=== PATIENT | male | born 1965 | race Caucasian/White ===

== ENCOUNTER 2017-06-18 14:43 | Emergency (ER) | payer BC ==
--- NOTE | 2017-06-18 15:18 | UC ---
Ear Complaint HPI - HPI Summary HPI Summary: 51 y/o male presents to the urgent care c/o persistent productive cough for the past week. She also states myalgias, chills, subjective fever,m left ear pain, Nasal congestion. Cough is producing a green phlegm. Pt has been taking Sudafed and Tylenol to alleviate symptoms. However cough is getting worse, now feeling SOB. Pt denies chest pain, abdominal pain, N/V/D. - History of Current Complaint Stated Complaint: CONGESTION EARS Time Seen by Provider: 06/18/17 15:17 Hx Obtained From: Patient Onset/Duration: Gradual Onset, Lasting Weeks - 1 week, Still Present Severity Initially: Mild Severity Currently: Moderate Pain Intensity: 4 - ear pain and VARGAS Pain Scale Used: 0-10 Numeric Alleviating Factors: OTC Meds Associated Signs/Symptoms: Positive: URI Symptoms - Allergies/Home Medications Allergies/Adverse Reactions: Allergies Allergy/AdvReac Type Severity Reaction Status Date / Time No Known Allergies Allergy Verified 06/18/17 15:23 PMH/Surg Hx/FS Hx/Imm Hx Previously Healthy: Yes - Pt denies PMHX - Family History Known Family History: Positive: Hypertension Family History: Dyslipidemia - Social History Occupation: Employed Full-time Lives: With Family Smoking Status (MU): Never Smoked Tobacco Review of Systems Constitutional: Fever - subjective at home, Chills - at night time Skin: Other - lips with sore due to fever Eyes: Negative ENT: Ear Ache - LF ear pain, Nasal Discharge - yellowish discharge, Sinus Congestion Respiratory: Shortness Of Breath, Cough - productive with green phlegm Cardiovascular: Negative Gastrointestinal: Negative Genitourinary: Negative Motor: Negative Neurovascular: Negative Musculoskeletal: Negative Neurological: Headache - mild Psychological: Negative Is Patient Immunocompromised?: No All Other Systems Reviewed And Are Negative: Yes Physical Exam Triage Information Reviewed: Yes Appearance: Well-Appearing, No Pain Distress, Well-Nourished Vital Signs Reviewed: Yes Eye Exam: Normal Eyes: Positive: Conjunctiva Clear - PERRLA, EOMI ENT: Positive: Normal ENT inspection, Hearing grossly normal, Pharynx normal, Nasal congestion - edematous, eryhtematous nasal mucosa, TMs normal - B/L exteranl ear canal clear, B/L TM's peraly in color with light reflex. Negative : Tonsillar swelling, Tonsillar exudate Neck exam: Normal Neck: Positive: Supple, Nontender, No Lymphadenopathy Respiratory: Positive: Chest non-tender, No respiratory distress, No accessory muscle use, Rhonchi - B/L posterior upper lung mendez with rhonchi Cardiovascular Exam: Normal Cardiovascular: Positive: RRR, No Murmur, Pulses Normal, Brisk Capillary Refill Abdominal Exam: Normal Abdomen Description: Positive: Nontender, No Organomegaly, Soft. Negative: CVA Tenderness (R), CVA Tenderness (L) Bowel Sounds: Positive: Present Musculoskeletal Exam: Normal Musculoskeletal: Positive: Strength Intact, ROM Intact, No Edema Neurological Exam: Normal Psychological Exam: Normal Skin Exam: Normal Ear Complaint Course/Dx - Course Course Of Treatment: 51 y/o male presents to the urgent care c/o persistent productive cough for the past week. She also states myalgias, chills, subjective fever,m left ear pain, Nasal congestion. Cough is producing a green phlegm. Pt has been taking Sudafed and Tylenol to alleviate symptoms. However cough is getting worse, now feeling SOB. Pt denies chest pain, abdominal pain, N/V/D. Hx obtained. Pt with acute bronchitis on examination. Chest X-ray ordered to r/o pneumonia. Impression: No acute cardiopulmonary disease observed. Pt with a lot of bronchospasm. Pt given albuterol neb treatment to alleviate symptoms. Pt tolerated well treatment. Pt Rx Z-marianne and Tessalon tabs PO, Albuterol inhaler to alleviate cough. Advised to increase fluid intake and rest. If symptoms do not improve or worsen and he develops SOB with fever and severe wheezing please go immediately to the ER further evaluation and treatment. Pt BP elevated advised to decrease salt in diet and monitor BP. Pt understood and agreed with plan of care. Pt left the clinic ambulating, A&OX3 - Differential Dx/Diagnosis Differential Diagnosis/HQI/PQRI: Bronchitis, Cerumen Impaction, Otitis Externa, Otitis Media, Perforated TM, URI, Other - pneumonia. Provider Diagnoses: 1- Acute bronchitis. 2- Elevated BP w/o Hx of HTN Discharge - Discharge Plan Condition: Stable Disposition: HOME Prescriptions: Albuterol HFA INHALER* [Ventolin HFA Inhaler*] 1 - 2 puff INH Q4H PRN #1 mdi PRN Reason: Cough Azithromycin TAB* [Zithromax TAB (Z-MARIANNE) 250 mg #6 tabs] 2 tab PO .TODAY, THEN 1 DAILY #1 marianne Benzonatate CAP* [Tessalon 100 MG CAP*] 100 mg PO TID #15 cap Patient Education Materials: Acute Bronchitis (ED), Bronchospasm (ED), Low Sodium Diet (ED) Forms: *Work Release Referrals: [facility] [place] [facility] [place] [facility] [Outside] Additional Instructions: 1-Please take full course of antibiotic to avoid resistance. 2-Take Tessalon PO tabs as directed and use the albuterol inhaler to alleviate cough. Increase fluid intake, rest and eat well. 3- If symptoms do not improve or worsen or your develop SOB with fever and severe wheezing please go immediately to the ER further evaluation and treatment. 4- F/u with your PCP in 2-3 days for further management 5- Your BP today is elevated, please decrease salt in your diet, monitor your BP , if it continues to be elevated please f/y with your PCP for further management.
[2017-06-18 15:24] VITALS: BP 148/96
[2017-06-18] MEDS ORDERED: Albuterol 2.5 MG/3 ML NEB.SOL* (0.083%) INH ONE (15:38)
--- NOTE | 2017-06-18 16:07 | RAD ---
INDICATION: Cough and fever x1 week COMPARISON: None TECHNIQUE: PA and lateral views of the chest were obtained. FINDINGS: The heart and mediastinum are normal in size and contour. The lungs are grossly clear. There is no evidence of large pleural effusion. Visualized bones are normal for the patient's age. There is no radiographic evidence of free air beneath the diaphragm IMPRESSION: No radiographic evidence of acute cardiopulmonary disease.
== END 2017-06-18 16:27 | disposition home or self-care (01) ==
LOC: UCCORT 14:43
DX: J20.9 Acute bronchitis, unspecified (principal); R03.0 Elevated blood-pressure reading, without diagnosis of hypertension
CPT/HCPCS: 71020; 99202; G0463